=== PATIENT | male | born 1945 | race Caucasian/White ===

== ENCOUNTER 2021-04-24 17:38 | Inpatient (IN) | payer OTHER, MEDICAID, SELFPAY ==
[~2021-04-24] VITALS: Ht 172.7 cm; Wt 65.8 kg
[2021-04-24 17:40] VITALS: BP_SYST 101
[2021-04-24 18:25] LABS: BASOPHILS # (AUTO) 0.1 K/uL (0.0-0.2); BASOPHILS % (AUTO) 0.7 % (0.0-2.0); EOSINOPHILS # (AUTO) 0.2 K/uL (0.0-0.4); EOSINOPHILS % (AUTO) 2.7 % (0.0-4.0); HEMATOCRIT 40.7 % (36-54); HEMOGLOBIN 13.6 g/dL (14.0-18.0); LYMPHOCYTES # (AUTO) 1.1 K/uL (1.0-5.5); LYMPHOCYTES % (AUTO) 14.3 % (20.5-51.5); MEAN CORPUSCULAR HEMOGLOBIN 32 pg (27-31); MEAN CORPUSCULAR HGB CONC 33 % (32-36); MEAN CORPUSCULAR VOLUME 95 fL (79.0-98.0); MONOCYTES # (AUTO) 0.5 K/uL (0.0-1.0); MONOCYTES % (AUTO) 7.1 % (1.7-9.3); NEUTROPHILS # (AUTO) 5.7 K/uL (1.8-7.7); NEUTROPHILS % (AUTO) 75.2 % (40.0-70.0); PLATELET COUNT (AUTO) 144 K/uL (130-430); RED BLOOD CELL COUNT(AUTO) 4.29 MIL/uL (4.2-6.2); RED CELL DISTRIBUTION WIDTH 15.9 % (9.0-15.0); WHITE BLOOD COUNT (AUTO) 7.5 K/uL (4.8-10.8)
[2021-04-24 18:39] LABS: ACETONE, SERUM NEGATIVE (NEGATIVE); ANION GAP 9 (5-15); CHLORIDE 117 mmol/L (98-107); CREATININE 1.38 mg/dL (0.55-1.30); GLUCOSE 132 mg/dL (70-99); POTASSIUM 3.5 mmol/L (3.5-5.1); SODIUM SERUM 150 mmol/L (136-145); UREA NITROGEN, BLOOD 36 mg/dL (8-21)
[2021-04-24 18:43] LABS: INR 1.2 (0.80-1.20); PROTHROMBIN TIME 12.3 SECS (9.5-12.5)
[2021-04-24 18:45] LABS: ALANINE AMINOTRANSFERASE 31 U/L (12-78); ALBUMIN 2.2 g/dL (3.4-4.8); ASPARTATE AMINOTRANSFERASE 45 U/L (10-37); TOTAL BILIRUBIN 0.5 mg/dL (0.0-1.0)
[2021-04-24 19:04] LABS: BILIRUBIN,URINE NEGATIVE (NEGATIVE); BLOOD, URINE NEGATIVE (NEGATIVE); CLARITY/URINE CLEAR (CLEAR); COLOR,URINE YELLOW (YELLOW); GLUCOSE,URINE NEGATIVE (NEGATIVE); KETONES,URINE NEGATIVE (NEGATIVE); LEUKOCYTE ESTERASE ,URINE NEGATIVE (NEGATIVE); NITRITE, URINE NEGATIVE (NEGATIVE); PH,URINE 5.5 (5.0-8.0); PROTEIN URINE 1+ (NEGATIVE); UROBILINOGEN,URINE 0.2 (0.2-1.0)
[2021-04-24] MEDS ORDERED: NACL 0.9% 1,000 ML IV ONE (19:15)
[2021-04-24 19:24] LABS: BACTERIA,URINE FEW /HPF (None Seen); RBC,URINE NONE SEEN /HPF (0-3); URINE AMORPHOUS URATE 1+ /HPF (None Seen)
[2021-04-24 19:25] LABS: FINE GRANULAR CASTS,URINE 0-10 /LPF (None Seen); MUCUS,URINE None Seen /LPF (None Seen)
[2021-04-24] MEDS ORDERED: FLUO30CR46 TP (19:27)
[2021-04-24] MEDS ORDERED: PHEN100C4 PO (19:27)
[2021-04-24] MEDS ORDERED: ASPI-1155 PO (19:27)
[2021-04-24] MEDS ORDERED: COR3.125 PO (19:27)
[2021-04-24] MEDS ORDERED: LIP20 PO (19:27)
[2021-04-24] MEDS ORDERED: CALC-823 PO (19:27)
[2021-04-24] MEDS ORDERED: FERR-69 PO (19:27)
[2021-04-24] MEDS ORDERED: BENA10TA73 PO (19:27)
[2021-04-24] MEDS ORDERED: DOCU-144 PO (19:27)
[2021-04-24] MEDS ORDERED: MULT15TA3 PO (19:32)
[2021-04-24] MEDS ORDERED: VITD2000 PO (19:32)
[2021-04-24] MEDS ORDERED: ASCO500T20 PO (19:32)
[2021-04-24] MEDS ORDERED: ACET325C5 PO (19:32)
[2021-04-24] MEDS ORDERED: MEMA10TA PO (19:32)
[2021-04-24] MEDS ORDERED: ONDANSETRON HCL 4 MG/2 ML VIAL IVP PRN (21:45)
[2021-04-24] MEDS ORDERED: ZOLPIDEM TARTRATE 5 MG TABLET PO PRN (21:45)
[2021-04-24] MEDS ORDERED: DOCUSATE SODIUM 100 MG CAPSULE PO PRN (21:45)
[2021-04-24] MEDS ORDERED: POTASSIUM CHLORIDE 20 MEQ TAB.PRT.SR PO PRN (21:45)
[2021-04-24] MEDS ORDERED: LORazepam 2 MG/ML VIAL IVP PRN (21:45)
[2021-04-24] MEDS ORDERED: MUPIROCIN 2% TOPICAL OINTMENT 22 GM NS PRN (21:45)
[2021-04-24] MEDS ORDERED: MAGNESIUM SULFATE 50 ML IV PRN (21:45)
[2021-04-24] MEDS: NACL 0.9% 1,000 ML IV SCH (21:45)
[2021-04-24] MEDS ORDERED: ACETAMINOPHEN 325 MG TABLET PO PRN (21:45)
[2021-04-24 23:30] VITALS: BP_SYST 119
[2021-04-25 01:18] VITALS: BP_SYST 138
[2021-04-25 01:31] VITALS: BP_SYST 119
[2021-04-25 06:35] LABS: BASOPHILS % (AUTO) 0.4 % (0.0-2.0); EOSINOPHILS # (AUTO) 0.2 K/uL (0.0-0.4); EOSINOPHILS % (AUTO) 3.5 % (0.0-4.0); HEMATOCRIT 39.2 % (36-54); HEMOGLOBIN 12.9 g/dL (14.0-18.0); LYMPHOCYTES % (AUTO) 14.6 % (20.5-51.5); MEAN CORPUSCULAR HEMOGLOBIN 32 pg (27-31); MEAN CORPUSCULAR HGB CONC 33 % (32-36); MEAN CORPUSCULAR VOLUME 96 fL (79.0-98.0); MONOCYTES # (AUTO) 0.6 K/uL (0.0-1.0); MONOCYTES % (AUTO) 8.4 % (1.7-9.3); NEUTROPHILS % (AUTO) 73.1 % (40.0-70.0); PLATELET COUNT (AUTO) 144 K/uL (130-430); RED BLOOD CELL COUNT(AUTO) 4.09 MIL/uL (4.2-6.2); RED CELL DISTRIBUTION WIDTH 16.2 % (9.0-15.0); WHITE BLOOD COUNT (AUTO) 6.9 K/uL (4.8-10.8)
[2021-04-25 07:08] LABS: ANION GAP 11 (5-15); CALCIUM 7.7 mg/dL (8.4-11.0); CHLORIDE 119 mmol/L (98-107); CREATININE 1.05 mg/dL (0.55-1.30); GLUCOSE 99 mg/dL (70-99); POTASSIUM 3.6 mmol/L (3.5-5.1); SODIUM SERUM 153 mmol/L (136-145); UREA NITROGEN, BLOOD 30 mg/dL (8-21)
[2021-04-25 08:00] VITALS: BP_SYST 138
[2021-04-25] MEDS: NACL 0.9% 1,000 ML IV SCH (10:12)
[2021-04-25] MEDS: ASPIRIN 81 MG TAB.CHEW PO SCH (10:13)
[2021-04-25] MEDS: ASCORBIC ACID 500 MG TABLET PO SCH (10:13)
[2021-04-25] MEDS: PHENYTOIN 100 MG CAPSULE PO SCH ×2 (10:13→20:15)
[2021-04-25] MEDS: MEMANTINE HCL 5 MG TABLET PO SCH ×2 (10:13→20:15)
[2021-04-25] MEDS: LISINOPRIL 10 MG TABLET (PRINIVIL) PO SCH (10:14)
[2021-04-25] MEDS: CARVEDILOL 3.125 MG TABLET (COREG) PO SCH ×2 (10:14→20:16)
[2021-04-25] MEDS: HEPARIN SODIUM,PORCINE 5,000 UNITS/ML VIAL SUBCUT SCH ×2 (10:15→20:17)
[2021-04-25 12:32] VITALS: BP_SYST 133
[2021-04-25 16:40] VITALS: BP_SYST 130
[2021-04-25 20:00] VITALS: BP_SYST 137
[2021-04-25] MEDS: ATORVASTATIN 20 MG TABLET PO SCH (20:16)
[2021-04-26] VITALS: BP_SYST 158
[2021-04-26] MEDS: NACL 0.9% 1,000 ML IV SCH (05:42)
[2021-04-26 07:10] LABS: BASOPHILS % (AUTO) 0.2 % (0.0-2.0); EOSINOPHILS # (AUTO) 0.3 K/uL (0.0-0.4); EOSINOPHILS % (AUTO) 4.3 % (0.0-4.0); HEMATOCRIT 45.5 % (36-54); HEMOGLOBIN 14.9 g/dL (14.0-18.0); LYMPHOCYTES # (AUTO) 1.2 K/uL (1.0-5.5); LYMPHOCYTES % (AUTO) 16.2 % (20.5-51.5); MEAN CORPUSCULAR HEMOGLOBIN 31 pg (27-31); MEAN CORPUSCULAR HGB CONC 33 % (32-36); MEAN CORPUSCULAR VOLUME 96 fL (79.0-98.0); MONOCYTES # (AUTO) 0.5 K/uL (0.0-1.0); MONOCYTES % (AUTO) 6.8 % (1.7-9.3); NEUTROPHILS # (AUTO) 5.3 K/uL (1.8-7.7); NEUTROPHILS % (AUTO) 72.5 % (40.0-70.0); PLATELET COUNT (AUTO) 178 K/uL (130-430); RED BLOOD CELL COUNT(AUTO) 4.75 MIL/uL (4.2-6.2); WHITE BLOOD COUNT (AUTO) 7.3 K/uL (4.8-10.8)
[2021-04-26 07:12] LABS: ANION GAP 12 (5-15); CALCIUM 8.3 mg/dL (8.4-11.0); CHLORIDE 119 mmol/L (98-107); GLUCOSE 96 mg/dL (70-99); SODIUM SERUM 155 mmol/L (136-145); UREA NITROGEN, BLOOD 30 mg/dL (8-21)
[2021-04-26 08:07] VITALS: BP_SYST 160
[2021-04-26] MEDS: PHENYTOIN 100 MG CAPSULE PO SCH ×2 (08:40→20:49)
[2021-04-26] MEDS: ASCORBIC ACID 500 MG TABLET PO SCH (08:40)
[2021-04-26] MEDS: LISINOPRIL 10 MG TABLET (PRINIVIL) PO SCH (08:41)
[2021-04-26] MEDS: ASPIRIN 81 MG TAB.CHEW PO SCH (08:41)
[2021-04-26] MEDS: HEPARIN SODIUM,PORCINE 5,000 UNITS/ML VIAL SUBCUT SCH ×2 (08:41→21:04)
[2021-04-26] MEDS: MEMANTINE HCL 5 MG TABLET PO SCH ×2 (08:42→20:49)
[2021-04-26] MEDS: CARVEDILOL 3.125 MG TABLET (COREG) PO SCH ×2 (08:42→21:16)
[2021-04-26] MEDS ORDERED: D5/0.45 NS 1,000 ML IV SCH (12:15)
[2021-04-26 12:18] VITALS: BP_SYST 164
[2021-04-26 18:19] VITALS: BP_SYST 138
[2021-04-26 20:15] VITALS: BP_SYST 150
[2021-04-26] MEDS: ATORVASTATIN 20 MG TABLET PO SCH (20:49)
[2021-04-26] MEDS ORDERED: DIPHENHYDRAMINE HCL 25 MG CAPSULE PO PRN (21:30)
[2021-04-26] MEDS: D5W 1,000 ML IV SCH (22:06)
[2021-04-26] MEDS: DIPHENHYDRAMINE HCL 25 MG CAPSULE PO PRN (23:38)
[2021-04-26] MEDS: ALBUTEROL SULFATE 0.083% 2.5 MG/3 ML VIAL.NEB INH PRN (23:54)
[2021-04-26 23:59] VITALS: BP_SYST 150
[2021-04-27 02:00] VITALS: BP_SYST 140
[2021-04-27 07:19] LABS: ANION GAP 12 (5-15); CALCIUM 8.3 mg/dL (8.4-11.0); CHLORIDE 117 mmol/L (98-107); CREATININE 1.27 mg/dL (0.55-1.30); GLUCOSE 144 mg/dL (70-99); POTASSIUM 4.3 mmol/L (3.5-5.1); SODIUM SERUM 151 mmol/L (136-145); UREA NITROGEN, BLOOD 31 mg/dL (8-21)
[2021-04-27] MEDS: ALBUTEROL SULFATE 0.083% 2.5 MG/3 ML VIAL.NEB INH PRN (07:24)
[2021-04-27 07:45] LABS: BASOPHILS # (AUTO) 0.1 K/uL (0.0-0.2); BASOPHILS % (AUTO) 0.6 % (0.0-2.0); EOSINOPHILS # (AUTO) 0.2 K/uL (0.0-0.4); EOSINOPHILS % (AUTO) 2.3 % (0.0-4.0); LYMPHOCYTES # (AUTO) 1.4 K/uL (1.0-5.5); LYMPHOCYTES % (AUTO) 18.2 % (20.5-51.5); MEAN CORPUSCULAR HEMOGLOBIN 32 pg (27-31); MEAN CORPUSCULAR HGB CONC 33 % (32-36); MEAN CORPUSCULAR VOLUME 97 fL (79.0-98.0); MONOCYTES # (AUTO) 0.6 K/uL (0.0-1.0); MONOCYTES % (AUTO) 7.6 % (1.7-9.3); NEUTROPHILS # (AUTO) 5.6 K/uL (1.8-7.7); NEUTROPHILS % (AUTO) 71.3 % (40.0-70.0); PLATELET COUNT (AUTO) 184 K/uL (130-430); RED BLOOD CELL COUNT(AUTO) 4.64 MIL/uL (4.2-6.2); WHITE BLOOD COUNT (AUTO) 7.9 K/uL (4.8-10.8)
[2021-04-27 08:03] VITALS: BP_SYST 150
[2021-04-27] MEDS: HEPARIN SODIUM,PORCINE 5,000 UNITS/ML VIAL SUBCUT SCH (08:31)
[2021-04-27] MEDS: CARVEDILOL 3.125 MG TABLET (COREG) PO SCH ×2 (08:33→20:30)
[2021-04-27] MEDS: MEMANTINE HCL 5 MG TABLET PO SCH ×2 (08:33→20:29)
[2021-04-27] MEDS: ASCORBIC ACID 500 MG TABLET PO SCH (08:33)
[2021-04-27] MEDS: ASPIRIN 81 MG TAB.CHEW PO SCH (08:33)
[2021-04-27] MEDS: PHENYTOIN 100 MG CAPSULE PO SCH ×2 (08:33→20:29)
[2021-04-27] MEDS: LISINOPRIL 10 MG TABLET (PRINIVIL) PO SCH (08:34)
[2021-04-27] MEDS ORDERED: FUROSEMIDE 40 MG/4 ML VIAL IVP ONE (10:00)
[2021-04-27] MEDS: D5W 1,000 ML IV SCH (10:32)
[2021-04-27] MEDS: DIPHENHYDRAMINE HCL 25 MG CAPSULE PO PRN (11:30)
[2021-04-27 12:43] VITALS: BP_SYST 129
[2021-04-27] MEDS ORDERED: HEPARIN SODIUM,PORCINE 5,000 UNITS/ML VIAL IVP ONE (13:30)
[2021-04-27] MEDS ORDERED: HEPARIN SODIUM,PORCINE 3000 UNITS/0.6 ML BOLUS IVP PRN (13:30)
[2021-04-27] MEDS ORDERED: HEPARIN SODIUM,PORCINE 2000 UNITS/0.4 ML BOLUS IVP PRN (13:30)
[2021-04-27] MEDS: HEPARIN 25,000 UNITS/D5W 250ML 250 ML IV PRN (14:02)
[2021-04-27 16:39] VITALS: BP_SYST 113
[2021-04-27 20:00] VITALS: BP_SYST 134
[2021-04-27] MEDS: ATORVASTATIN 20 MG TABLET PO SCH (20:29)
[2021-04-27] MEDS: FUROSEMIDE 20 MG/2 ML VIAL IVP SCH (20:31)
[2021-04-28] VITALS: BP_SYST 132
[2021-04-28] MEDS: D5W 1,000 ML IV SCH (06:43)
[2021-04-28 06:44] LABS: BASOPHILS % (AUTO) 0.4 % (0.0-2.0); EOSINOPHILS # (AUTO) 0.3 K/uL (0.0-0.4); EOSINOPHILS % (AUTO) 4.4 % (0.0-4.0); HEMATOCRIT 42.8 % (36-54); HEMOGLOBIN 14.3 g/dL (14.0-18.0); LYMPHOCYTES # (AUTO) 1.3 K/uL (1.0-5.5); LYMPHOCYTES % (AUTO) 16.7 % (20.5-51.5); MEAN CORPUSCULAR HEMOGLOBIN 32 pg (27-31); MEAN CORPUSCULAR HGB CONC 33 % (32-36); MEAN CORPUSCULAR VOLUME 95 fL (79.0-98.0); MONOCYTES # (AUTO) 0.5 K/uL (0.0-1.0); MONOCYTES % (AUTO) 6.3 % (1.7-9.3); NEUTROPHILS # (AUTO) 5.6 K/uL (1.8-7.7); NEUTROPHILS % (AUTO) 72.2 % (40.0-70.0); PLATELET COUNT (AUTO) 158 K/uL (130-430); RED BLOOD CELL COUNT(AUTO) 4.52 MIL/uL (4.2-6.2); WHITE BLOOD COUNT (AUTO) 7.8 K/uL (4.8-10.8)
[2021-04-28 07:20] LABS: ANION GAP 12 (5-15); CALCIUM 7.9 mg/dL (8.4-11.0); CHLORIDE 114 mmol/L (98-107); CREATININE 1.17 mg/dL (0.55-1.30); GLUCOSE 118 mg/dL (70-99); POTASSIUM 3.7 mmol/L (3.5-5.1); SODIUM SERUM 149 mmol/L (136-145); UREA NITROGEN, BLOOD 29 mg/dL (8-21)
[2021-04-28 07:30] VITALS: BP_SYST 137
[2021-04-28] MEDS: ASPIRIN 81 MG TAB.CHEW PO SCH (09:00)
[2021-04-28] MEDS: PHENYTOIN 100 MG CAPSULE PO SCH ×2 (09:00→21:30)
[2021-04-28] MEDS: MEMANTINE HCL 5 MG TABLET PO SCH ×2 (09:00→21:34)
[2021-04-28] MEDS: ASCORBIC ACID 500 MG TABLET PO SCH (09:01)
[2021-04-28] MEDS: LISINOPRIL 10 MG TABLET (PRINIVIL) PO SCH (09:02)
[2021-04-28] MEDS: FUROSEMIDE 20 MG/2 ML VIAL IVP SCH ×2 (09:03→21:00)
[2021-04-28] MEDS: CARVEDILOL 3.125 MG TABLET (COREG) PO SCH ×2 (09:03→21:00)
[2021-04-28 11:24] VITALS: BP_SYST 131
[2021-04-28 15:13] VITALS: BP_SYST 119
[2021-04-28] MEDS: HEPARIN 25,000 UNITS/D5W 250ML 250 ML IV PRN (18:17)
[2021-04-28 20:00] VITALS: BP_SYST 91
[2021-04-28] MEDS: ATORVASTATIN 20 MG TABLET PO SCH (21:36)
[2021-04-29 00:17] VITALS: BP_SYST 114
[2021-04-29] MEDS: D5W 1,000 ML IV SCH (04:22)
[2021-04-29 06:29] LABS: BASOPHILS % (AUTO) 0.3 % (0.0-2.0); EOSINOPHILS # (AUTO) 0.3 K/uL (0.0-0.4); HEMATOCRIT 42.8 % (36-54); HEMOGLOBIN 13.9 g/dL (14.0-18.0); LYMPHOCYTES # (AUTO) 1.3 K/uL (1.0-5.5); LYMPHOCYTES % (AUTO) 17.3 % (20.5-51.5); MEAN CORPUSCULAR HEMOGLOBIN 31 pg (27-31); MEAN CORPUSCULAR HGB CONC 33 % (32-36); MEAN CORPUSCULAR VOLUME 96 fL (79.0-98.0); MONOCYTES # (AUTO) 0.5 K/uL (0.0-1.0); MONOCYTES % (AUTO) 6.2 % (1.7-9.3); NEUTROPHILS # (AUTO) 5.5 K/uL (1.8-7.7); NEUTROPHILS % (AUTO) 72.2 % (40.0-70.0); PLATELET COUNT (AUTO) 157 K/uL (130-430); RED BLOOD CELL COUNT(AUTO) 4.46 MIL/uL (4.2-6.2); RED CELL DISTRIBUTION WIDTH 16.1 % (9.0-15.0); WHITE BLOOD COUNT (AUTO) 7.6 K/uL (4.8-10.8)
[2021-04-29 06:45] LABS: ANION GAP 10 (5-15); CALCIUM 7.6 mg/dL (8.4-11.0); CHLORIDE 111 mmol/L (98-107); CREATININE 1.12 mg/dL (0.55-1.30); GLUCOSE 105 mg/dL (70-99); PHOSPHORUS 3.7 mg/dL (2.7-4.5); POTASSIUM 3.3 mmol/L (3.5-5.1); SODIUM SERUM 147 mmol/L (136-145); UREA NITROGEN, BLOOD 23 mg/dL (8-21)
[2021-04-29 08:00] VITALS: BP_SYST 116
[2021-04-29] MEDS: FUROSEMIDE 20 MG/2 ML VIAL IVP SCH ×2 (09:56→22:03)
[2021-04-29] MEDS: CARVEDILOL 3.125 MG TABLET (COREG) PO SCH (09:57)
[2021-04-29] MEDS: ASCORBIC ACID 500 MG TABLET PO SCH (09:57)
[2021-04-29] MEDS: MEMANTINE HCL 5 MG TABLET PO SCH ×2 (09:57→22:03)
[2021-04-29] MEDS: LISINOPRIL 10 MG TABLET (PRINIVIL) PO SCH (09:57)
[2021-04-29] MEDS: PHENYTOIN 100 MG CAPSULE PO SCH ×2 (09:58→22:03)
[2021-04-29] MEDS: ASPIRIN 81 MG TAB.CHEW PO SCH (09:58)
[2021-04-29 10:49] VITALS: BP_SYST 116
[2021-04-29 12:51] VITALS: BP_SYST 115
[2021-04-29 16:00] VITALS: BP_SYST 112
[2021-04-29 20:00] VITALS: BP_SYST 101
[2021-04-29] MEDS: ATORVASTATIN 20 MG TABLET PO SCH (22:02)
[2021-04-30] MEDS: CARVEDILOL 3.125 MG TABLET (COREG) PO SCH ×2 (00:08→08:50)
[2021-04-30] MEDS: D5W 1,000 ML IV SCH (00:11)
[2021-04-30] MEDS: ALBUTEROL SULFATE 0.083% 2.5 MG/3 ML VIAL.NEB INH PRN (01:30)
[2021-04-30 03:42] VITALS: BP_SYST 121
[2021-04-30 06:45] LABS: BASOPHILS % (AUTO) 0.3 % (0.0-2.0); EOSINOPHILS # (AUTO) 0.3 K/uL (0.0-0.4); EOSINOPHILS % (AUTO) 4.4 % (0.0-4.0); HEMOGLOBIN 13.2 g/dL (14.0-18.0); LYMPHOCYTES % (AUTO) 15.4 % (20.5-51.5); MEAN CORPUSCULAR HEMOGLOBIN 32 pg (27-31); MEAN CORPUSCULAR HGB CONC 33 % (32-36); MEAN CORPUSCULAR VOLUME 95 fL (79.0-98.0); MONOCYTES # (AUTO) 0.5 K/uL (0.0-1.0); MONOCYTES % (AUTO) 7.7 % (1.7-9.3); NEUTROPHILS # (AUTO) 4.8 K/uL (1.8-7.7); NEUTROPHILS % (AUTO) 72.2 % (40.0-70.0); PLATELET COUNT (AUTO) 168 K/uL (130-430); RED BLOOD CELL COUNT(AUTO) 4.21 MIL/uL (4.2-6.2); RED CELL DISTRIBUTION WIDTH 15.5 % (9.0-15.0); WHITE BLOOD COUNT (AUTO) 6.6 K/uL (4.8-10.8)
[2021-04-30 07:08] LABS: ANION GAP 8 (5-15); CALCIUM 7.5 mg/dL (8.4-11.0); CHLORIDE 109 mmol/L (98-107); GLUCOSE 120 mg/dL (70-99); PHOSPHORUS 3.5 mg/dL (2.7-4.5); POTASSIUM 3.8 mmol/L (3.5-5.1); SODIUM SERUM 144 mmol/L (136-145); UREA NITROGEN, BLOOD 23 mg/dL (8-21)
[2021-04-30 07:46] VITALS: BP_SYST 144
[2021-04-30] MEDS: PHENYTOIN 100 MG CAPSULE PO SCH (08:48)
[2021-04-30] MEDS: MEMANTINE HCL 5 MG TABLET PO SCH (08:49)
[2021-04-30] MEDS: LISINOPRIL 10 MG TABLET (PRINIVIL) PO SCH (08:49)
[2021-04-30] MEDS: ASCORBIC ACID 500 MG TABLET PO SCH (08:49)
[2021-04-30] MEDS: ASPIRIN 81 MG TAB.CHEW PO SCH (08:50)
[2021-04-30] MEDS: FUROSEMIDE 20 MG/2 ML VIAL IVP SCH (08:50)
[2021-04-30 09:59] VITALS: BP_SYST 144
== END 2021-04-30 10:40 | DRG 280 ==
LOC: SED 17:38 → STU 21:10
PROVIDERS: ADMIT General Practice; ATTEND General Practice
DX: I13.0 Hypertensive heart and chronic kidney disease with heart failure and stage 1 through stage 4 chronic kidney disease, or unspecified chronic kidney disease (principal); N17.0 Acute kidney failure with tubular necrosis; I21.A1 Myocardial infarction type 2; J96.01 Acute respiratory failure with hypoxia; E43 Unspecified severe protein-calorie malnutrition; I50.43 Acute on chronic combined systolic (congestive) and diastolic (congestive) heart failure; E87.0 Hyperosmolality and hypernatremia; I42.0 Dilated cardiomyopathy; E86.1 Hypovolemia; G30.9 Alzheimer's disease, unspecified; F02.80 Dementia in other diseases classified elsewhere, unspecified severity, without behavioral disturbance, psychotic disturbance, mood disturbance, and anxiety; D64.9 Anemia, unspecified; E78.5 Hyperlipidemia, unspecified; E55.9 Vitamin D deficiency, unspecified; Z20.822 Contact with and (suspected) exposure to COVID-19; N18.2 Chronic kidney disease, stage 2 (mild); G40.909 Epilepsy, unspecified, not intractable, without status epilepticus; Z87.891 Personal history of nicotine dependence; Z74.01 Bed confinement status; Z99.81 Dependence on supplemental oxygen; Z88.0 Allergy status to penicillin; Z79.82 Long term (current) use of aspirin; Z79.899 Other long term (current) drug therapy; Z68.22 Body mass index [BMI] 22.0-22.9, adult
CPT/HCPCS: 36415; 70450-TC; 71045; 76376; 80048; 80053; 80185; 81000; 82009; 82550; 83036; 83605; 83735; 83880; 84100; 84484; 85025; 85610-TC; 85730-TC; 87081; 93005; 93306; 94640; 94760; 96360; 96361; 99285; G0378; J1644; J1940; J2060; J7030; J7060; J7613; Q0163